=== PATIENT | male | born 1980 | race Caucasian/White ===

== ENCOUNTER 2020-02-18 18:22 | Observation (INO) | payer OTHER, SELFPAY ==
[2020-02-18 18:23] VITALS: BP 162/140; PULSE 88; RESP 20; O2SAT 100; BMI 32.1
--- NOTE | 2020-02-18 18:26 | ECG_ITS ---
APPROVED REPORT Exam: Resting ECG HR:96 bpm ECG Measurements Heart Rate 96 AXES SD 160 P 32 QRSd 100 QRS 10 QT 354 T 39 QTc 447 <Conclusion> Normal sinus rhythm Minimal voltage criteria for LVH, may be normal variant Borderline ECG Electronically signed by : Arpan You, 02/21/2020 07:08:09
--- NOTE | 2020-02-18 18:43 | XR_ITS ---
PROCEDURE: XR CHEST 2V CLINICAL HISTORY: syncope COMPARISON: No exams were available for comparison FINDINGS: The cardiomediastinal silhouette and pulmonary vascularity are within normal limits. The lungs are clear without infiltrates, suspicious nodules, or pleural effusions. No acute bony abnormalities. IMPRESSION: No acute findings. Dictated by: Chay Monahan MD 02/19/2020 04:54 Chay Monahan MD in [place] 02/19/2020 04:54
--- NOTE | 2020-02-18 18:55 | HMH.EDGENADL ---
ED Disposition Clinical Impression: VIVEK (acute kidney injury) Disposition: Admitted As Inpatient Condition on Discharge: Good Instructions: DI for Syncope in Adults (Fainting), DI for Syncope in Children (Fainting) Referrals: Provider,Referral, [Referring] - - Critical Care Critical Care Time: No Attestation: On 02/18/20, the high probability of a clinically significant, sudden or life threatening deterioration of the following system(s) required my full and direct attention, intervention and personal management. The time I documented below is in addition to time spent performing reported procedures but includes the following listed in this critical care notation. Medical Decision Making - Medical Records Medical records reviewed: Yes: I reviewed the patient's medical records. - Juan R Inquiry Pt receiving controlled substance: No Vital Signs: 02/18/20 18:23 02/18/20 19:41 Pulse Rate [Left Radial] 88 97 H Respiratory Rate 20 18 Blood Pressure [Right Arm] 162/140 H 109/59 L Blood Pressure Mean [Right Arm] 147 75 Blood Pressure Source [Right Arm] Automatic Cuff Blood Pressure Position [Right Arm] Sitting 02 Sat by Pulse Oximetry 100 97 Oxygen Delivery Method Room Air Room Air - Lab Data Lab Results 02/18/20 18:26: Sodium 138, Potassium 3.6, Chloride 98, Carbon Dioxide 24, Anion Gap 19.6 H, BUN 42 H, Creatinine 2.50 H, Estimated Creat Clear 62, Estimated GFR 28 L, Est GFR ( Amer) 34 L, Glucose 128 H, Calcium 9.7, Troponin I < 0.01 02/18/20 18:43: WBC 14.0 H, RBC 5.21, Hgb 16.1, Hct 46.3, MCV 88.9, MCH 30.9, MCHC 34.7, RDW 12.7, Plt Count 321, MPV 8.7, Neut % (Auto) 62.6, Lymph % (Auto) 26.6, [place] % (Auto) 7.5, Eos % (Auto) 2.4, Baso % (Auto) 0.9, Neut # (Auto) 8.8 H, Lymph # (Auto) 3.7, [place] # (Auto) 1.1 H, Eos # (Auto) 0.3, Baso # (Auto) 0.1 Result diagrams: 02/18/20 18:43 08/26/20 18:26 Orders (Tests/Meds): ED MEDICATIONS Generic Name Dose Route Start Last Admin Trade Name Nasreen PRN Reason Stop Dose Admin Lactated Ringer's 2,000 mls @ 999 mls/hr 02/18/20 20:00 02/18/20 19:53 Lactated Ringer's 1000 Ml Bag IV 02/18/20 22:00 999 mls/hr .Q2H1M AUDREY Administration ORDERS Category Date Time Status XR chest 2V Stat Exams 02/18/20 18:43 Taken Covid-19 IgG/IgM ([facility]) Stat Lab 02/18/20 18:36 Received Medical Decision Narrative: Presents for syncopal episode. Patient has been seen by primary care doctor initially for hypotension likely secondary to high dose of antihypertensives. Patient passed out, did not hit his head. Low concern for intracranial pathology at this time. Patient's vital signs here are within normal range, patient denies any chest pain, shortness of breath nausea, vomiting. EKG is normal, no STEMI, low concern for ischemia. Intervals including QT and QTc are within normal ranges. Patient had lab work done which was significant for acute kidney injury, creatinine 2.5, baseline unknown. He was given 2 L of lactated Ringer's, patient was admitted to medicine for further work-up. General Adult HPI - General Chief complaint: Dizziness Stated complaint: SYNCOPE Time Seen by Provider: 02/18/20 20:29 Mode of Arrival: Ambulatory Limitations: No Limitations Description of Symptoms (Recalled from ER Triage Doc. by RN): Pt states that he was at his PCP for low blood pressure when they were drawing blood and all he remembers was getting dizzy and being told that he passed out. - History of Present Illness HPI narrative: Patient presents for syncopal concerns. Patient was getting blood drawn at primary care doctor's office today for the first time, patient blood pressure prior was 90/60, patient has had increased doses of his time hypertensive medications hydrochlorothiazide and lisinopril. During blood draw as patient in lightheaded presyncopal, he did not hit his head, he was out for approximately 2 minutes per . Patient currently complains about no symp
[2020-02-18 18:56] LABS: Basophils # 0.1 K/mm3 (0-0.2); Basophils % 0.9 % (0.1-2.0); Eosinophils # 0.3 K/mm3 (0.0-0.4); Eosinophils % 2.4 % (0.1-12.0); Hematocrit 46.3 % (42.0-52.0); Hemoglobin 16.1 g/dL (14.1-18.0); Lymphocytes # 3.7 K/mm3 (0.7-4.5); Lymphocytes % 26.6 % (10-50); Mean Corpuscular HGB Conc 34.7 g/dL (31.8-35.4); Mean Corpuscular Hemoglobin 30.9 pg (27.0-31.2); Mean Corpuscular Volume 88.9 fl (80-94); Mean Platelet Volume 8.7 fl (7.4-10.4); Monocytes # 1.1 K/mm3 (0.1-1.0); Monocytes % 7.5 % (1.7-9.3); Neutrophils # 8.8 K/mm3 (1.8-7.8); Neutrophils % 62.6 % (37.0-80.0); Platelet Count 321 K/mm3 (142-424); Red Blood Count 5.21 M/mm3 (4.60-6.20); Red Cell Distribution Width 12.7 % (11.5-17.5)
[2020-02-18 19:01] LABS: Chloride 98 mmol/L (98-107); Potassium 3.6 mmoL/L (3.5-5.1); Sodium 138 mmol/L (136-145)
[2020-02-18 19:04] LABS: Anion Gap 19.6 mEq/L (5-15); Blood Urea Nitrogen 42 mg/dl (9-20); Calcium 9.7 mg/dl (8.4-10.2); Carbon Dioxide 24 mmol/L (22.0-30.0); Creatinine Clearance Estimated 62 mL/min (50-200); Estimated Glomerular Filt Rate 28 ml/min (>60); GFR (African American) 34 ML/MIN (>60); Glucose 128 mg/dl (74-100)
[2020-02-18 19:37] LABS: Troponin I < 0.01 ng/ml (0.00-0.034)
[2020-02-18 19:41] VITALS: BP 109/59; PULSE 97; RESP 18; O2SAT 97
[2020-02-18 20:27] VITALS: BP 122/79; PULSE 104; RESP 18; O2SAT 98
[2020-02-18 20:56] LABS: Coronavirus 19 IgG Antibody Negative (Negative); Coronavirus 19 IgM Antibody Negative (Negative)
[2020-02-18 21:08] VITALS: BP 113/67; PULSE 99; RESP 18; O2SAT 96
[2020-02-18 21:37] LABS: Microscopic, Urine URINE MICROSCOPIC (MICROSCOPIC)
--- NOTE | 2020-02-18 21:37 | PC.NURSE ---
@ 2100 report given to Malgorzata Slaughter RN and pt moved to room 219, Step-down.
[2020-02-18 21:39] LABS: Appearance,Urine CLEAR (Clear); Bilirubin,Urine Negative (Negative); Blood, Urine TRACE-L (Negative); Color,Urine YELLOW (Yellow); Glucose,Urine (UA) Negative (Negative); Ketones,Urine Negative (Negative); Leukocyte Esterase,Urine Negative (Negative); Nitrate,Urine Negative (Negative); PH,Urine 5.5 (5.0-8.5); Protein,Urine Negative (Negative); Specific Gravity, Urine >= 1.030 (1.005-1.030); Urobilinogen,Urine 0.2 EU/dl (0.2)
[2020-02-18 21:49] VITALS: BP 122/68; PULSE 96; RESP 14; TEMP -17.7; TEMP 0; O2SAT 98
--- NOTE | 2020-02-18 21:51 | PC.NURSE ---
patient up to floor via wheelchair
[2020-02-18 22:03] VITALS: BP 133/57; PULSE 109; RESP 16; TEMP 37.3; O2SAT 98; BMI 31.8
[2020-02-18 22:29] LABS: Bacteria,Urine 2+ /lpf; Mucus,Urine 1+ /lpf; RBC,Urine Occasional #/hpf (0-3)
[2020-02-19 04:00] VITALS: BP 123/78; PULSE 87; RESP 16; TEMP 36.8; O2SAT 97
--- NOTE | 2020-02-19 04:51 | PC.NURSE ---
Pt is A&Ox4 and has ambulated to the BR a few times this shift and pt tolerates well independently. Pt denies any pain, N/V/D. Pt denies any SOA, dizziness, or light-headiness. Pt has slept intermittently during the night and is anxious to go home. Pt refused TEDS. Lungs CTA. ABD is soft, non-tender with active BS x4 quads. Pt reports he Feels so much better after the bags of fluids . VSS, call light within reach, will continue to monitor.
--- NOTE | 2020-02-19 07:37 | P.CONPHA_ITS ---
[facility] Pharmacy VTE Monitoring - Patient Demographics Admission date: 02/19/20 Report Date: 02/19/20 Time: 07:37 Allergies/Adverse Reactions: Patient Allergies No Known Allergies Allergy (Verified 02/18/20 17:01) Height: 1.88 m Weight: 112.491 kg Patient Problems: Current Active Problems VIVEK (acute kidney injury) (Acute) - VTE Risk Labs: VTE Related Lab Results Hgb 16.1 g/dL (14.1-18.0) 02/18/20 18:43 Hct 46.3 % (42.0-52.0) 02/18/20 18:43 Plt Count 321 K/mm3 (142-424) 02/18/20 18:43 BUN 42 mg/dl (9-20) H 02/18/20 18:26 Creatinine 2.50 mg/dl (0.66-1.25) H 02/18/20 18:26 Estimated Creat Clear 62 mL/min (50-200) 02/18/20 18:26 Was VTE Risk Assessment Performed: Yes VTE Score: 5 VTE Risk Level: Low Risk Clinical Trial Participant: No - Prophylaxis VTE Prophylaxis Ordered?: Yes Types of VTE Prophylaxis: TEDS Knee High
[2020-02-19 07:57] VITALS: BP 148/89; PULSE 85; RESP 16; TEMP 37.1; O2SAT 97
--- NOTE | 2020-02-19 09:16 | CA_ITS ---
APPROVED REPORT EXAM: Comprehensive 2D, Doppler, and color-flow Echocardiogram Entry Specialist: Sue Shea RVT Ht: 6 ft 2 in Wt: 248lbs BSA: 2.38 BP: 140/80 mmHg Indications: SYNCOPE,HTN TDS 2D Dimensions LVOT 3.20 cm (M/F) 1.5-2.5 M-Mode Dimensions RVDd 3.54 cm (0.9-2.6) LVDd 4.41 cm (3.5-5.7) LVDs 3.16 cm (3.5-5.7) IVSd 0.57 cm (0.6-1.1) PWd 0.76 cm (0.6-1.1) EF (Teich) 55.00% FS 28.30% EDV (Teich) 88.20 mL ESV (Teich) 39.70 mL LV Diastology E/A Ratio 1.11 Mitral Valve MV A Velocity 69.00 (40-130 cm/s) Left Ventricle Left atrium is mildly enlarged, left ventricle is normal size, mild concentric left ventricular hypertrophy, visually estimated ejection fraction 55% with no regional wall motion abnormality. Diastolic parameters are inconclusive. Right Ventricle Right atrium and right ventricular normal size and contractility. Aortic Valve Aortic valve is minimally thickened and fibrosed, there is no aortic stenosis or aortic insufficiency. Mitral Valve Mitral valve is grossly normal, there is mild mitral regurgitation. Tricuspid Valve Tricuspid valve is grossly normal, there is mild tricuspid regurgitation, tricuspid regurgitation jet velocity is inadequate for calculation of the right ventricular systolic pressure. Pulmonic Valve Pulmonic valve is poorly visualized. Great Vessels Aortic root is normal size. Pericardium No significant pericardial effusion noted. Conclusion 1. Mildly enlarged left atrium, normal left ventricular size, mild concentric left ventricular hypertrophy, visually estimated ejection fraction 55% with no regional wall motion abnormality, diastolic parameters are inconclusive. 2. Mild mitral and tricuspid regurgitation. 3. No significant pericardial effusion noted. Electronically signed by : Darren Bernstein, 02/19/2020 12:11:01
[2020-02-19 09:22] LABS: Basophils % 0.4 % (0.1-2.0); Eosinophils # 0.2 K/mm3 (0.0-0.4); Eosinophils % 1.5 % (0.1-12.0); Hematocrit 38.6 % (42.0-52.0); Lymphocytes # 1.7 K/mm3 (0.7-4.5); Lymphocytes % 16.4 % (10-50); Mean Corpuscular HGB Conc 34.9 g/dL (31.8-35.4); Mean Corpuscular Volume 88.8 fl (80-94); Mean Platelet Volume 8.5 fl (7.4-10.4); Monocytes # 0.6 K/mm3 (0.1-1.0); Monocytes % 5.9 % (1.7-9.3); Neutrophils # 7.7 K/mm3 (1.8-7.8); Neutrophils % 75.8 % (37.0-80.0); Platelet Count 195 K/mm3 (142-424); Red Blood Count 4.35 M/mm3 (4.60-6.20); Red Cell Distribution Width 12.9 % (11.5-17.5); White Blood Count 10.2 K/mm3 (4.8-10.8)
[2020-02-19 09:41] LABS: Anion Gap 9.7 mEq/L (5-15); Blood Urea Nitrogen 34 mg/dl (9-20); Calcium 8.8 mg/dl (8.4-10.2); Carbon Dioxide 31 mmol/L (22.0-30.0); Chloride 99 mmol/L (98-107); Chol/HDL Ratio 4.8 (1-3.5); Cholesterol 171 mg/dl (140-200); Creatinine Clearance Estimated 102 mL/min (50-200); Estimated Glomerular Filt Rate 51 ml/min (>60); GFR (African American) 62 ML/MIN (>60); Glucose 103 mg/dl (74-100); HDL Cholesterol 36 mg/dl (40-60); Potassium 3.7 mmoL/L (3.5-5.1); Sodium 136 mmol/L (136-145); Triglycerides 250 mg/dl (30-150); VLDL Cholesterol 50 mg/dL (0-40)
[2020-02-19 09:45] VITALS: PULSE 85; RESP 16; O2SAT 97
[2020-02-19 09:52] LABS: Direct LDL Cholesterol 98.48 mg/dL (100-129)
[2020-02-19 10:01] LABS: Hemoglobin A1C 5.4 % (4.0-6.0)
--- NOTE | 2020-02-19 10:04 | HMH.CNCARD ---
History of Present Illness Consult date: 02/19/20 Requesting physician: Ryan Gusman Consult reason: hypotension Chief complaint: Syncope Additional Medical History:: 1. HTN 2. Tobacco use 3. ETOH use, daily History of present illness: 40-year-old white male admitted for syncopal episode in PCP office during blood draw with possible seizure activity. Patient relates several months history of increasing orthostatic dizziness and lightheadedness with a feeling of fatigue. Patient relates approximately a year ago his blood pressure medicine was increased to lisinopril 40 mg daily with HCTZ 25 mg daily. His job changed to where he is outside in the elements more and unable to hydrate as often as he would like. Lab revealed that the patient's creatinine was 2.5 with an elevated BUN of 42 after admission to the hospital. Patient has received IV fluids overnight with significant improvement in his blood pressure and his symptoms. He is anxious to go home today. He denies any chest pain, pressure or tightness. He denies any prior cardiac issues other than high blood pressure. He does drink about 6-8 beers per day and does smoke while drinking only. He does relate having a son that is 14 years old with a diagnosis of hypertrophic cardiomyopathy and is on verapamil therapy. He is concerned that he may have a similar condition. Echocardiogram is pending at this time [facility] History Medical History: Reports:: Hypertension Denies:: Cancer, Diabetes Mellitus Type 1, Diabetes Mellitus Type 2, MRSA *Have you ever received a pneumonia vaccine?: No *Have you received a flu vaccine this season?: No Other Surgeries: Yes: Other (rt femur fx repair) Amputation: No Fractures: No - *Social History Last grade of school completed: High school graduate Smoking Status: Current some day smoker Tobacco Type: cigarettes # Packs/Day (cigarettes): 1 Alcohol Intake: current Alcohol Intake Frequency:: 3 or more drinks per day Substance Use Type: denies use *Occupational Status:: employed Housing: house Household Members: none *Travel in the last 8 weeks: None Family Hx:: Cancer, Coronary Artery Disease, Diabetes, Heart Attack, Hyperlipidemia, Hypertension, Mental illness Meds Home Medications Medication Instructions Recorded Confirmed Type hydrochlorothiazide 25 mg tablet 25 mg PO DAILY tab 02/18/20 02/18/20 History lisinopril 40 mg tablet 40 mg PO DAILY tab 02/18/20 02/18/20 History Allergies Allergy/AdvReac Type Severity Reaction Status Date / Time No Known Allergies Allergy Verified 02/18/20 17:01 Exam Vital signs and Labs for Last 24 Hours: Temp Pulse Resp BP Pulse Ox 98.8 F 85 16 148/89 H 97 02/19/20 07:57 02/19/20 09:45 02/19/20 09:45 02/19/20 07:57 02/19/20 09:45 Laboratory Results - last 24 hr 02/18/20 18:26: Sodium 138, Potassium 3.6, Chloride 98, Carbon Dioxide 24, Anion Gap 19.6 H, BUN 42 H, Creatinine 2.50 H, Estimated Creat Clear 62, Estimated GFR 28 L, Est GFR ( Amer) 34 L, Glucose 128 H, Calcium 9.7, Troponin I < 0.01 02/18/20 18:36: SARS-CoV-2 IgG Ab (Rapid) Negative, SARS-CoV-2 IgM Ab (Rapid) Negative 02/18/20 18:43: WBC 14.0 H, RBC 5.21, Hgb 16.1, Hct 46.3, MCV 88.9, MCH 30.9, MCHC 34.7, RDW 12.7, Plt Count 321, MPV 8.7, Neut % (Auto) 62.6, Lymph % (Auto) 26.6, [place] % (Auto) 7.5, Eos % (Auto) 2.4, Baso % (Auto) 0.9, Neut # (Auto) 8.8 H, Lymph # (Auto) 3.7, [place] # (Auto) 1.1 H, Eos # (Auto) 0.3, Baso # (Auto) 0.1 02/18/20 21:00: Urine Color Yellow, Urine Appearance Clear, Urine pH 5.5, Ur Specific [place] >= 1.030, Urine Protein Negative, Urine Glucose (UA) Negative, Urine Ketones Negative, Urine Blood Trace-l, Urine Nitrate Negative, Urine Bilirubin Negative, Urine Urobilinogen 0.2, Ur Leukocyte Esterase Negative, Urine RBC Occasional, Urine WBC 5-10, Urine Bacteria 2+, Hyaline Casts 10-20, Urine Mucus 1+ 02/19/20 09:17: WBC 10.2 D, RBC 4.35 L, Hct 38.6 L, MCV 88.8, MCH 31.0, MCHC 34.9, RDW 12.9,
--- NOTE | 2020-02-19 10:44 | HMH.HPDC ---
General - General Admission date:: 02/18/20 Discharge date: 02/19/20 *Admission Date: 02/19/20 *Chief complaint: hypotension *History of present illness: 40-year-old male admitted for syncopal episode in PCP office during blood draw with possible seizure activity. Patient relates several months history of increasing orthostatic dizziness and lightheadedness with a feeling of fatigue. Patient relates approximately a year ago his blood pressure medicine was increased to lisinopril 40 mg daily with HCTZ 25 mg daily. His job changed to where he is outside in the elements more and unable to hydrate as often as he would like. In ed patient's creatinine was 2.5 with an elevated BUN of 42 after admission to the hospital. Patient has received IV fluids overnight with significant improvement in his blood pressure and his symptoms. cre today 1.5 He is anxious to go home today. He denies any chest pain, pressure or tightness. He denies any prior cardiac issues other than high blood pressure. He does drink about 6-8 beers per day and does smoke while drinking only. He does relate having a son that is 14 years old with a diagnosis of hypertrophic cardiomyopathy. He is concerned that he may have a similar condition. Echocardiogram ordered [facility] History I have reviewed the patient's past medical history: Yes Medical History: Reports:: Hypertension Denies:: Cancer, Diabetes Mellitus Type 1, Diabetes Mellitus Type 2, MRSA *Have you ever received a pneumonia vaccine?: No *Have you received a flu vaccine this season?: No Other Surgeries: Yes: Other (rt femur fx repair) Amputation: No Fractures: No - *Social History Last grade of school completed: High school graduate Smoking Status: Current some day smoker Tobacco Type: cigarettes # Packs/Day (cigarettes): 1 Alcohol Intake: current Alcohol Intake Frequency:: 3 or more drinks per day Substance Use Type: denies use *Occupational Status:: employed Housing: house Household Members: none *Travel in the last 8 weeks: None Family Hx:: Cancer, Coronary Artery Disease, Diabetes, Heart Attack, Hyperlipidemia, Hypertension, Mental illness Review of Systems - Review of Systems Review of systems:: pertinent systems reviewed and negative unless documented below - Constitutional Reports fatigue, Reports malaise, Denies body ache(s), Denies lack of energy - Eyes Denies blurry vision - ENT Reports dizziness, Denies bleeding gums, Denies post nasal drip, Denies throat swelling - *Cardiovascular Reports excessive sweating, Denies chest pain at rest, Denies chest pain with activity - *Respiratory Denies chest congestion, Denies shortness of breath - *Gastrointestinal Denies nausea, Denies vomiting - *Genitourinary Denies urinary frequency - *Musculoskeletal Denies decreased muscle mass - Integumentary/Breasts Denies change in hair - *Neurologic Reports dizziness, Reports dizziness, Reports weakness, Denies abnormal walking - Psychiatric Reports anxiety, Denies lack of enjoyment - Endocrine Reports excessive sweating - Hematologic/Lymphatic Denies easy bruising - Allergic/Immunologic Denies itchy eyes Exam Vital signs and Labs for Last 24 Hours: Temp Pulse Resp BP Pulse Ox 98.8 F 85 16 148/89 H 97 02/19/20 07:57 02/19/20 09:45 02/19/20 09:45 02/19/20 07:57 02/19/20 09:45 Laboratory Results - last 24 hr 02/18/20 18:26: Sodium 138, Potassium 3.6, Chloride 98, Carbon Dioxide 24, Anion Gap 19.6 H, BUN 42 H, Creatinine 2.50 H, Estimated Creat Clear 62, Estimated GFR 28 L, Est GFR ( Amer) 34 L, Glucose 128 H, Calcium 9.7, Troponin I < 0.01 02/18/20 18:36: SARS-CoV-2 IgG Ab (Rapid) Negative, SARS-CoV-2 IgM Ab (Rapid) Negative 02/18/20 18:43: WBC 14.0 H, RBC 5.21, Hgb 16.1, Hct 46.3, MCV 88.9, MCH 30.9, MCHC 34.7, RDW 12.7, Plt Count 321, MPV 8.7, Neut % (Auto) 62.6, Lymph % (Auto) 26.6, [place] % (Auto) 7.5, Eos % (Auto) 2.4, Baso % (Auto) 0.9, Neut # (Auto) 8.8
[2020-02-19 10:53] LABS: Hemoglobin 13.5 g/dL (14.1-18.0)
--- NOTE | 2020-02-19 11:56 | HMH.PHAINT ---
DISCHARGE COUNSELING COMPLETED.
== END 2020-02-19 11:30 | disposition home or self-care (01) ==
LOC: ER 20:31 → 2ND 21:58
PROVIDERS: Admitting Provider Internal Medicine Adolescent Medicine; Emergency Provider Emergency Medicine; PCP Nurse Practitioner Family; Visit Provider Emergency Medicine
DX: R55 Syncope and collapse (principal); N17.9 Acute kidney failure, unspecified; E86.0 Dehydration; I10 Essential (primary) hypertension; Z72.0 Tobacco use; I95.9 Hypotension, unspecified; F10.10 Alcohol abuse, uncomplicated
CPT/HCPCS: 71046; 80048; 80061; 81001; 83036; 84484; 85025; 86328; 87086; 93005; 93306; 96365; 96366; 99284; G0378

== ENCOUNTER → 2020-03-05 18:00 | Outpatient (CLI) | payer OTHER, SELFPAY ==
[2020-03-05 19:46] LABS: Anion Gap 17.2 mEq/L (5-15); Blood Urea Nitrogen 15 mg/dl (9-20); Calcium 9.4 mg/dl (8.4-10.2); Carbon Dioxide 25 mmol/L (22.0-30.0); Chloride 102 mmol/L (98-107); Estimated Glomerular Filt Rate 93 ml/min (>60); GFR (African American) 112 ML/MIN (>60); Glucose 86 mg/dl (74-100); Potassium 4.2 mmoL/L (3.5-5.1); Sodium 140 mmol/L (136-145)
== END ==
PROVIDERS: Visit Provider Nurse Practitioner Family
DX: N17.9 Acute kidney failure, unspecified (principal)
CPT/HCPCS: 80048

== ENCOUNTER → 2020-03-08 07:54 | Outpatient (CLI) | payer OTHER, SELFPAY ==
--- NOTE | 2020-03-08 07:55 | CA_ITS ---
APPROVED REPORT Exam: Exercise Treadmill Technologist: Kelly Levin Ht: 6 ft 2 in Wt: 250 lbs BSA: 2.39 m2 HR: 109 bpm BP: 139/99 mmHg Indications: HYPERtension Medical History Medications: Lisinopril,,,,, BuPROPION,,,,, Stress Test Details Test: Rsos HR Resting HR: 113 bpm Max Heart Rate (APMHR): 178 bpm Max HR Achieved: 165 bpm Target HR (85% APMHR): 151 bpm % of APMHR: 92 Recovery HR: 121 bpm BP Resting BP: 139/99 mmHg Max BP: 180/105 mmHg Recovery BP: 141.0/101.0 mmHg ECG Clinical Exercise duration: 09:00 min Highest Stage Achieved: Exercise capacity: 10.1 METs Stress ECG Conclusion Resting ECG: Sinus tachycardia Ross protocol completed. Patient exercised 09:00. Test stopped due to shortness of breath, resolved in recovery. Symptoms: Shortness of breath at peak exercise. No chest pain. Arrhythmias/Ectopy: Occasional PVC. ST-T Changes: Less than 1.[address] depression. Conclusion: GXT only. Hypertensive blood pressure response. Good exercise capacity. Occasional PVC. Less than 1.[address] depression. No chest pain. Test Summary REST . . . . . . . Sitting REST 08:00 0.0 0.0 113 . 139/ 99 . . Stage 1 01:00 10.0 1.7 120 . . . . Stage 1 02:00 10.0 1.7 126 . . . . Stage 1 03:00 10.0 1.7 127 . 158/ 96 . . Stage 2 01:00 12.0 2.5 138 . . . . Stage 2 02:00 12.0 2.5 147 . . . . Stage 2 03:00 12.0 2.5 145 . 172/100 . . Stage 3 01:00 14.0 3.4 155 . . . . Stage 3 02:00 14.0 3.4 160 . . . . Stage 3 03:00 14.0 3.4 165 . 180/105 . Stop exercise at 09:00 RECOVERY 01:00 0.0 0.0 155 . 174/ 98 . . RECOVERY 02:00 0.0 0.0 136 . 174/ 98 . . RECOVERY 03:00 0.0 0.0 127 . 171/105 . . RECOVERY 04:00 0.0 0.0 126 . 153/105 . . RECOVERY 05:00 0.0 0.0 121 . 153/105 . . RECOVERY 06:00 0.0 0.0 120 . 147/104 . . RECOVERY 07:00 0.0 0.0 119 . 147/104 . . RECOVERY 08:00 0.0 0.0 118 . 141/101 . . RECOVERY 09:00 0.0 0.0 118 . 135/100 . . RECOVERY 09:12 0.0 0.0 120 . 135/100 . . Electronically signed by : Darren Bernstein, 03/08/2020 22:13:38
== END ==
PROVIDERS: PCP Nurse Practitioner Family; Visit Provider Urology
DX: R55 Syncope and collapse (principal); R94.31 Abnormal electrocardiogram [ECG] [EKG]; Z86.79 Personal history of other diseases of the circulatory system
CPT/HCPCS: 93017

== ENCOUNTER → 2021-12-13 15:25 | Outpatient (CLI) | payer OTHER, SELFPAY ==
[2021-12-13 14:42] LABS: Alanine Aminotransferase 36 U/L (12-78); Albumin Level 4.2 g/dl (3.5-5.0); Albumin/Globulin Ratio 1.5 (1.1-1.8); Alkaline Phosphatase 78 U/L (38-126); Anion Gap 13.8 mEq/L (5-15); Aspartate Amino Transferase 30 U/L (17-59); Bilirubin,Total 0.4 mg/dl (0.2-1.3); Blood Urea Nitrogen 17 mg/dl (9-20); Calcium 9.6 mg/dl (8.4-10.2); Carbon Dioxide 26 mmol/L (22.0-30.0); Chloride 102 mmol/L (98-107); Chol/HDL Ratio 4.9 (1-3.5); Cholesterol 252 mg/dl (140-200); Estimated Glomerular Filt Rate 106 ml/min (>60); GFR (African American) 128 ML/MIN (>60); Globulin 2.8 g/dL (1.3-3.2); Glucose 106 mg/dl (74-100); HDL Cholesterol 51 mg/dl (40-60); Potassium 4.8 mmoL/L (3.5-5.1); Sodium 137 mmol/L (136-145); Triglycerides 180 mg/dl (30-150); VLDL Cholesterol 36 mg/dL (0-40)
[2021-12-13 14:53] LABS: Direct LDL Cholesterol 160.97 mg/dL (100-129)
== END ==
PROVIDERS: Visit Provider Family Medicine
DX: Z00.00 Encounter for general adult medical examination without abnormal findings (principal)
CPT/HCPCS: 80053; 80061

== ENCOUNTER → 2022-08-08 23:37 | Outpatient (CLI) | payer OTHER, SELFPAY ==
[2022-08-08 19:23] LABS: Basophils # 0.1 K/mm3 (0-0.2); Basophils % 0.8 % (0.1-2.0); Eosinophils # 0.2 K/mm3 (0.0-0.4); Eosinophils % 1.9 % (0.1-12.0); Hematocrit 46.5 % (42.0-52.0); Hemoglobin 16.3 g/dL (14.1-18.0); Lymphocytes # 2.2 K/mm3 (0.7-4.5); Lymphocytes % 24.8 % (10-50); Mean Corpuscular HGB Conc 35.2 g/dL (31.8-35.4); Mean Corpuscular Hemoglobin 29.6 pg (27.0-31.2); Mean Corpuscular Volume 84.2 fl (80-94); Mean Platelet Volume 9.6 fl (7.4-10.4); Monocytes # 0.6 K/mm3 (0.1-1.0); Monocytes % 6.6 % (1.7-9.3); Neutrophils # 5.8 K/mm3 (1.8-7.8); Neutrophils % 65.8 % (37.0-80.0); Platelet Count 333 K/mm3 (142-424); Red Blood Count 5.52 M/mm3 (4.60-6.20); Red Cell Distribution Width 13.5 % (11.5-17.5); White Blood Count 8.7 K/mm3 (4.8-10.8)
[2022-08-08 20:28] LABS: Alanine Aminotransferase 33 U/L (12-78); Albumin Level 4.7 g/dl (3.5-5.0); Albumin/Globulin Ratio 1.8 (1.1-1.8); Alkaline Phosphatase 81 U/L (38-126); Anion Gap 13.2 mEq/L (5-15); Aspartate Amino Transferase 28 U/L (17-59); Bilirubin,Total 0.6 mg/dl (0.2-1.3); Blood Urea Nitrogen 21 mg/dl (9-20); Calcium 9.4 mg/dl (8.4-10.2); Carbon Dioxide 25 mmol/L (22.0-30.0); Chloride 106 mmol/L (98-107); Chol/HDL Ratio 5.6 (1-3.5); Cholesterol 239 mg/dl (140-200); Estimated Glomerular Filt Rate 92 ml/min (>60); GFR (African American) 111 ML/MIN (>60); Globulin 2.6 g/dL (1.3-3.2); Glucose 97 mg/dl (74-100); HDL Cholesterol 43 mg/dl (40-60); Potassium 4.2 mmoL/L (3.5-5.1); Sodium 140 mmol/L (136-145); Total Protein,Serum 7.3 g/dl (6.3-8.2); Triglycerides 326 mg/dl (30-150); VLDL Cholesterol 65 mg/dL (0-40)
[2022-08-08 20:45] LABS: Direct LDL Cholesterol 136.61 mg/dL (100-129)
[2022-08-08 20:53] LABS: 25-OH Vitamin D, Total < 12.8 ng/mL (30-100)
[2022-08-08 21:04] LABS: Prostate Specific Ag Screen 0.8 ng/ml (0.0-4.0); Thyroid Stimulating Hormone 2.47 uIU/mL (0.465-4.68)
== END ==
PROVIDERS: PCP Family Medicine; Visit Provider Family Medicine
DX: I10 Essential (primary) hypertension (principal); E55.9 Vitamin D deficiency, unspecified; Z79.899 Other long term (current) drug therapy; Z86.79 Personal history of other diseases of the circulatory system
CPT/HCPCS: 80053; 80061; 82306; 84443; 85025; G0103

== ENCOUNTER 2023-09-07 17:48 | Outpatient (CLI) | payer BC, SELFPAY ==
[2023-09-07 19:01] LABS: Basophils # 0.1 K/mm3 (0-0.2); Basophils % 0.9 % (0.1-2.0); Eosinophils # 0.3 K/mm3 (0.0-0.4); Eosinophils % 2.6 % (0.1-12.0); Hematocrit 46.6 % (42.0-52.0); Hemoglobin 15.5 g/dL (14.1-18.0); Lymphocytes # 2.6 K/mm3 (0.7-4.5); Lymphocytes % 27.3 % (10-50); Mean Corpuscular HGB Conc 33.2 g/dL (31.8-35.4); Mean Corpuscular Hemoglobin 29.9 pg (27.0-31.2); Mean Corpuscular Volume 90.1 fl (80-94); Mean Platelet Volume 9.4 fl (7.4-10.4); Monocytes # 0.6 K/mm3 (0.1-1.0); Monocytes % 6.6 % (1.7-9.3); Neutrophils % 62.7 % (37.0-80.0); Platelet Count 284 K/mm3 (142-424); Red Blood Count 5.17 M/mm3 (4.60-6.20); Red Cell Distribution Width 13.1 % (11.5-17.5); White Blood Count 9.6 K/mm3 (4.8-10.8)
[2023-09-07 19:17] LABS: Alanine Aminotransferase 32 U/L (12-78); Albumin Level 4.5 g/dl (3.5-5.0); Albumin/Globulin Ratio 1.9 (1.1-1.8); Alkaline Phosphatase 89 U/L (38-126); Anion Gap 13.1 mEq/L (5-15); Aspartate Amino Transferase 27 U/L (17-59); Bilirubin,Total 0.4 mg/dl (0.2-1.3); Blood Urea Nitrogen 21 mg/dl (9-20); Calcium 9.3 mg/dl (8.4-10.2); Carbon Dioxide 22 mmol/L (22.0-30.0); Chloride 106 mmol/L (98-107); Estimated Glomerular Filt Rate 91 ml/min (>60); GFR (African American) 110 ML/MIN (>60); Globulin 2.4 g/dL (1.3-3.2); Glucose 89 mg/dl (74-100); Potassium 4.1 mmoL/L (3.5-5.1); Sodium 137 mmol/L (136-145); Total Protein,Serum 6.9 g/dl (6.3-8.2)
[2023-09-07 19:20] LABS: Hemoglobin A1C 5.8 % (4.0-6.0)
[2023-09-07 19:27] LABS: 25-OH Vitamin D, Total 53.9 ng/mL (30-100)
[2023-09-07 19:45] LABS: Prostate Specific Ag Screen 0.7 ng/ml (0.0-4.0); Thyroid Stimulating Hormone 1.27 uIU/mL (0.465-4.68)
== END 2023-09-07 23:59 ==
LOC: LAB.DROPOF 17:49
PROVIDERS: PCP Family Medicine; Visit Provider Family Medicine
DX: I10 Essential (primary) hypertension (principal); E78.5 Hyperlipidemia, unspecified; E55.9 Vitamin D deficiency, unspecified; F32.9 Major depressive disorder, single episode, unspecified; F41.9 Anxiety disorder, unspecified; Z79.899 Other long term (current) drug therapy; Z12.5 Encounter for screening for malignant neoplasm of prostate
CPT/HCPCS: 80053; 82306; 83036; 84443; 85025; G0103

== ENCOUNTER 2024-11-21 07:51 | Outpatient (CLI) | payer BC, SELFPAY ==
[2024-11-21 17:53] LABS: Basophils # 0.1 K/mm3 (0-0.2); Basophils % 0.6 % (0.1-2.0); Eosinophils % 0.2 % (0.1-12.0); Hematocrit 48.6 % (42.0-52.0); Hemoglobin 15.7 g/dL (14.1-18.0); Immature Granulocytes # 0.05 10^3uL; Immature Granulocytes % 0.5 %; Lymphocytes # 1.1 K/mm3 (0.7-4.5); Lymphocytes % 10.1 % (10-50); Mean Corpuscular HGB Conc 32.3 g/dL (31.8-35.4); Mean Corpuscular Hemoglobin 27.9 pg (27.0-31.2); Mean Corpuscular Volume 86.5 fl (80-94); Mean Platelet Volume 11.6 fl (7.4-10.4); Monocytes # 0.5 K/mm3 (0.1-1.0); Monocytes % 4.1 % (1.7-9.3); Neutrophils # 9.3 K/mm3 (1.8-7.8); Neutrophils % 84.5 % (37.0-80.0); Nucleated Red Blood Cells # 0 10^3/uL; Nucleated Red Blood Cells % 0 %; Platelet Count 274 K/mm3 (142-424); Red Blood Count 5.62 M/mm3 (4.60-6.20); Red Cell Distribution Width-SD 40.3 fL; White Blood Count 11.1 K/mm3 (4.8-10.8)
[2024-11-21 19:29] LABS: Hemoglobin A1C 5.5 % (4.0-6.0)
[2024-11-21 19:49] LABS: Albumin Level 4.6 g/dl (3.5-5.0); Chloride 106 mmol/L (98-107); Potassium 4.2 mmoL/L (3.5-5.1); Sodium 140 mmol/L (136-145)
[2024-11-21 19:52] LABS: Alanine Aminotransferase 36 U/L (12-78); Albumin/Globulin Ratio 1.8 (1.1-1.8); Alkaline Phosphatase 87 U/L (38-126); Anion Gap 15.2 mEq/L (5-15); Aspartate Amino Transferase 30 U/L (17-59); Bilirubin,Total 0.8 mg/dl (0.2-1.3); Blood Urea Nitrogen 18 mg/dl (9-20); Carbon Dioxide 23 mmol/L (22.0-30.0); Estimated Glomerular Filt Rate 104 ml/min (>60); GFR (African American) 126 ML/MIN (>60); Globulin 2.6 g/dL (1.3-3.2); Glucose 113 mg/dl (74-100); Total Protein,Serum 7.2 g/dl (6.3-8.2)
[2024-11-21 19:53] LABS: Calcium 9.4 mg/dl (8.4-10.2)
[2024-11-21 20:09] LABS: 25-OH Vitamin D, Total 19.6 ng/mL (30-100)
[2024-11-21 20:20] LABS: Thyroid Stimulating Hormone 1.04 uIU/mL (0.465-4.68)
== END 2024-11-21 23:59 | disposition home or self-care (01) ==
LOC: LAB.DROPOF 11-24 07:51
PROVIDERS: PCP Family Medicine; Visit Provider Family Medicine
DX: Z00.00 Encounter for general adult medical examination without abnormal findings (principal); E55.9 Vitamin D deficiency, unspecified; E78.5 Hyperlipidemia, unspecified; I10 Essential (primary) hypertension; R00.0 Tachycardia, unspecified; Z78.9 Other specified health status
CPT/HCPCS: 80053; 82306; 83036; 84443; 85025